=== PATIENT | female | born 1995 | race Caucasian/White ===

== ENCOUNTER 2016-12-24 09:40 | Emergency (ER) | payer OTHER ==
--- NOTE | 2016-12-24 10:32 | ER Document Report ---
HPI - HPI Patient complains to provider of: concussion Onset: Last week Onset/Duration: Persistent Quality of pain: Achy Pain Level: 3 Context: Patient presents to the emergency department with reports of a concussion. Patient reports last week when she was at the gym with her brother prior to working out she became dizzy and passed out hitting her head on a machine. She reports she is unsure of how long she was out, her brother had to pour water on her face to wake her up. She reports that the week prior to that she had been feeling dizzy and lightheaded. She reports since then she is having partial blackouts which she reports as seeing spots. She has also felt dizziness that comes/goes. She reports that day when she hit her head she vomited once. She has not vomited since that time. She reports family history of brain tumors in both her brothers. She also reports constant migraine that only goes away when she sleeps. She is taking Advil for it but it does not take care of the headache. Family history of migraines. Patient is here visiting her fianc and is worried about driving back 5 hours to [place]. Associated Symptoms: Headache Exacerbated by: Denies Relieved by: Denies Similar symptoms previously: No Recently seen / treated by doctor: No - DERM Skin Color: Normal Past Medical History - General Information source: Patient Last Menstrual Period: 12/21/16 - Social History Smoking Status: Unknown if Ever Smoked Cigarette use (# per day): No Frequency of alcohol use: None Drug Abuse: None Lives with: Family Family History: Other - brain tumor- brothers, migraines Patient has suicidal ideation: No Patient has homicidal ideation: No Renal/ Medical History: Denies: Hx Peritoneal Dialysis Traumatic Medical History: Reports: Hx Fractures, Other - concussion Past Surgical History: Reports: Hx Orthopedic Surgery Vertical Provider Document - CONSTITUTIONAL Agree With Documented VS: Yes Exam Limitations: No Limitations General Appearance: WD/WN, No Apparent Distress - INFECTION CONTROL TRAVEL OUTSIDE OF THE [place] IN LAST 30 DAYS: No - HEENT HEENT: Atraumatic, Normal ENT Exam, Normocephalic, PERRLA. negative: Conjuctival Injection, Pharyngeal Exudate, Pharyngeal Erythema, Tympanic Membrane Red - NECK Neck: Normal Inspection, Supple. negative: Lymphadenopathy-Left, Lymphadenopathy-Right - RESPIRATORY Respiratory: Breath Sounds Normal, No Respiratory Distress O2 Sat by Pulse Oximetry: 99 - CARDIOVASCULAR Cardiovascular: Regular Rate, Regular Rhythm - MUSCULOSKELETAL/EXTREMETIES Musculoskeletal/Extremeties: RALF LONGO - NEURO Level of Consciousness: Awake, Alert, Appropriate Motor/Sensory: No Motor Deficit - DERM Integumentary: Warm, Dry Course - Re-evaluation Re-evalutation: 12/24/16 11:19 Patient instructed on all results. UA negative patient is not . CT is normal EKG sinus rhythm. Patient looks nontoxic speaking in clear voice. No obvious neuro deficits. No dizziness at this time. Patient was instructed on all possibilities of her symptoms and instructed on the importance of follow-up with the primary care provider for full evaluation. She verbalized understanding - Vital Signs Vital signs: Temp Pulse Resp BP Pulse Ox 98.7 F 84 14 139/73 H 99 12/24/16 09:42 12/24/16 09:42 12/24/16 09:42 12/24/16 09:42 12/24/16 09:42 - Diagnostic Test Radiology reviewed: Image reviewed, Reports reviewed - ct normal - EKG Interpretation by Me EKG shows normal: Sinus rhythm Discharge - Discharge Clinical Impression: Dizziness, Elevated blood pressure reading Headache Qualifiers: Headache type: unspecified Headache chronicity pattern: unspecified pattern Condition: Stable Disposition: HOME, SELF-CARE Instructions: Dizziness ([facility]), Headache ([facility]), Head Injury Precautions ([facility]), Ibuprofen (General) ([facility]) Additional Instructions: *You have been evaluated for a headache, dizziness, head injury *Your CT did not show an acute injury *Take medication as prescribed for your headache *Increase fluids *Follow up with a primary care provider within one week for recheck *For safety reasons do not drive back to [place] by yourself. *Return to ED for increasing fever, cough, worsening condition, changes, needs Monitor your blood pressure. Your blood pressure was elevated today. This may be because you were anxious, in pain or because you need medication. It is important to follow up with your primary care provider for full evaluation. Prescriptions: Ibuprofen [Motrin 800 mg Tablet] 800 mg PO TID #30 tablet Forms: Elevated Blood Pressure
[2016-12-24 11:07] LABS: APPEARANCE,URINE SLIGHTLY-CLOUDY; BILIRUBIN,URINE NEGATIVE (NEGATIVE); GLUCOSE, URINE NEGATIVE (NEGATIVE); KETONES,URINE NEGATIVE (NEGATIVE); LEUKOCYTE ESTERASE,URINE TRACE (NEGATIVE); NITRITE,URINE NEGATIVE (NEGATIVE); PROTEIN,URINE NEGATIVE (NEGATIVE); URINE SPECIFIC GRAVITY 1.013; UROBILINOGEN,URINE NEGATIVE mg/dL (<2.0)
--- NOTE | 2016-12-24 11:08 | RADIOLOGY REPORT (SQ) ---
EXAM DESCRIPTION: CT HEAD WITHOUT COMPLETED DATE/TIME: 12/24/2016 10:53 am REASON FOR STUDY: head injury, dizziness, family hx tumors COMPARISON: None. TECHNIQUE: Axial images acquired through the brain without intravenous contrast. Images reviewed wi th bone, brain and subdural windows. Images stored on PACS. All CT scanners at this facility use dose modulation, iterative reconstruction, and/or weight based d osing when appropriate to reduce radiation dose to as low as reasonably achievable (ALARA). [facility]: Dose Right [facility]: CareDose [facility]: Dose Right [facility]: Teradose 4D [facility]: Smart [employer] RADIATION DOSE: Up-to-date CT equipment and radiation dose reduction techniques were employed. CTDIv ol: 64.6 mGy. DLP: 1163 mGy-cm. mGy. LIMITATIONS: None. FINDINGS: VENTRICLES: Normal size and contour. CEREBRUM: No masses. No hemorrhage. No midline shift. Normal ford/white matter differentiation. N o evidence for acute infarction. CEREBELLUM: No masses. No hemorrhage. No alteration of density. No evidence for acute infarction. EXTRAAXIAL SPACES: No fluid collections. No masses. ORBITS AND GLOBE: No intra- or extraconal masses. Normal contour of globe without masses. CALVARIUM: No fracture. PARANASAL SINUSES: No fluid or mucosal thickening. SOFT TISSUES: No mass or hematoma. OTHER: No other significant finding. IMPRESSION: NORMAL BRAIN CT WITHOUT CONTRAST. TECHNICAL DOCUMENTATION: JOB ID: [id number] Quality ID # [id number]: Final reports with documentation of one or more dose reduction techniques (e.g., Au tomated exposure control, adjustment of the mA and/or kV according to patient size, use of iterative reconstruction technique) 2010 [employer]- All Rights Reserved
[2016-12-24 11:44] VITALS: BP 126/64
--- NOTE | 2016-12-24 17:59 | EKG REPORT ---
SEVERITY:- NORMAL ECG - SINUS RHYTHM : Confirmed by: Sydni Larsen MD 24-Dec-2016 17:59:03
== END 2016-12-24 11:43 | disposition home or self-care (01) ==
LOC: ER 09:40
DX: R42 Dizziness and giddiness (principal); R03.0 Elevated blood-pressure reading, without diagnosis of hypertension; R51 Headache
CPT/HCPCS: 70450; 81001; 81025; 93005; 93010; 99284